=== PATIENT | male | born 1940 | race Caucasian/White ===

== ENCOUNTER 2021-10-10 16:00 | Emergency (ER) | payer MEDICARE, BC ==
[~2021-10-10] VITALS: Ht 162.6 cm; Wt 66.2 kg
[~2021-10-10 16:00] MED LIST: AMLO-212 PO; HYDR-4354 PO; METF-440 PO; NATE120T PO; PRED1TAB PO; SERT50TA PO; TACR5CAP2 PO; TAMS-3 PO
--- NOTE | 2021-10-10 16:10 | NUR ---
Latoya pearson in [facility] - 10/10/21 at 1646 by ASHLEY MD at bedside, medical screening exam in progress.
--- NOTE | 2021-10-10 16:35 | NUR ---
Patient eloped from facility. ER physician notified.
== END 2021-10-10 16:49 | disposition left against medical advice (07) ==
LOC: ER 16:00
DX: Z53.21 Procedure and treatment not carried out due to patient leaving prior to being seen by health care provider (principal)